=== PATIENT | male | born 1990 | race African-American/Black ===

== ENCOUNTER 2020-06-01 15:37 | Emergency (ER) | payer SELFPAY ==
[~2020-06-01] VITALS: Ht 177.8 cm; Wt 73.0 kg
[2020-06-01 15:47] VITALS: BP 114/58
--- NOTE | 2020-06-01 16:11 | NUR ---
WOUND CARE RN: PT AMBULATORY TO ROOM WITH STEADY GAIT AT THIS TIME FROM LOBBY WITH WEIGHT TESTER
[2020-06-01] MEDS ORDERED: NAPROXEN 500 MG TABLET ONE (17:36)
[2020-06-01] MEDS ORDERED: CYCLOBENZAPRINE 10 MG TABLET ONE (17:36)
[2020-06-01] MEDS ORDERED: NAPROXEN 500 MG TABLET PO ONE (18:00)
[2020-06-01] MEDS ORDERED: CYCLOBENZAPRINE 10 MG TABLET PO ONE (18:00)
[2020-06-01 18:03] LABS: MICROSCOPIC NOT IND
== END 2020-06-01 18:47 | disposition home or self-care (01) ==
LOC: ED 18:40
DX: G89.11 Acute pain due to trauma (principal); M54.2 Cervicalgia; R07.9 Chest pain, unspecified
CPT/HCPCS: 71046; 81003; 99284

== ENCOUNTER 2021-02-17 22:14 | Emergency (ER) | payer OTHER ==
[~2021-02-17] VITALS: Ht 170.2 cm; Wt 71.7 kg
--- NOTE | 2021-02-17 22:41 | NUR ---
NIL X 1
--- NOTE | 2021-02-17 22:50 | NUR ---
NIL X 2
[2021-02-17 23:15] VITALS: BP 149/95
== END 2021-02-17 23:31 | disposition home or self-care (01) ==
LOC: ED 22:30
DX: S39.011A Strain of muscle, fascia and tendon of abdomen, initial encounter (principal); X58.XXXA Exposure to other specified factors, initial encounter; Y93.89 Activity, other specified; Y92.89 Other specified places as the place of occurrence of the external cause; Y99.8 Other external cause status
CPT/HCPCS: 99281